=== PATIENT | female | born 1975 | race Caucasian/White ===

== ENCOUNTER 2016-09-28 08:29 | Emergency (ER) | payer OTHER ==
[2016-09-28 08:56] VITALS: BP 135/97; PULSE 83; RESP 18; TEMP 98.4; O2SAT 98; BMI 30.8
--- NOTE | 2016-09-28 09:24 | ED PDOC ---
Arrival/HPI - General Historian: Patient - General Chief Complaint: Eye Problem Time Seen by Provider: 09/28/16 09:13 - History of Present Illness Narrative History of Present Illness (Text): 09/28/16 09:20 Patient reports 2 day history of redness, irritation and thick yellow crusty discharge to both eyes since yesterday. Otherwise: (-) visual changes, (-) other injury, (-) contact lens. Patient also denies fever, chills, headache, URI symptoms, eye pain, FB sensation and has no other complaints at this time. PMD none (Tony REEVES,Stephania Chaves) Past Medical History - Provider Review Nursing Documentation Reviewed: Yes - Reproductive Menopause: No - Psychiatric Hx Substance Use: No Family/Social History - Physician Review Nursing Documentation Reviewed: Yes Family/Social History: No Known Family HX Smoking Status: Never Smoked Hx Alcohol Use: No Hx Substance Use: No Allergies/Home Meds Allergies/Adverse Reactions: Allergies No Known Allergies Allergy (Verified 09/28/16 08:56) Review of Systems - Review of Systems Constitutional: Normal. absent: Fatigue, Weight Change, Fevers Eyes: Normal, Other (b/l eye redness with d/c). absent: Vision Changes, Photophobia, Eye Pain ENT: Normal. absent: Hearing Changes, Tinnitus, Sore Throat, Epistaxis Skin: Normal. absent: Rash, Pruritis, Skin Lesions Physical Exam Vital Signs Reviewed: Yes Temperature: Afebrile Blood Pressure: Normal Pulse: Regular Respiratory Rate: Normal Appearance: Positive for: Well-Appearing, Non-Toxic, Comfortable Pain Distress: None Mental Status: Positive for: Alert and Oriented X 3 - Systems Exam Head: Present: Atraumatic, Normocephalic Pupils: Present: PERRL Extroacular Muscles: Present: EOMI, Other (Visual acuity : L 20/25 R 20/13) Conjunctiva: Present: Injected, Other (+crusty d/c to b/l eyelids) Ears: Present: Normal Mouth: Present: Moist Mucous Membranes Pharnyx: Present: Normal. No: ERYTHEMA, EXUDATE Nose (External): Present: Atraumatic Nose (Internal): Present: Normal Inspection Neck: Present: Normal Range of Motion. No: Meningeal Signs, MIDLINE TENDERNESS Neurological: Present: GCS=15, CN II-XII Intact Skin: Present: Warm, Dry, Normal Color. No: Rashes Vital Signs Temp Pulse Resp BP Pulse Ox 09/28/16 08:53 98.4 F 83 18 135/97 H 98 Medical Decision Making ED Course and Treatment: I was available for consultation during PA evaluation. The chart was reviewed by me, and I agree with disposition. The documented history was done by the physician ship pilot. The documented physical exam was done by the physician ship pilot. The documented procedures were done by the physician ship pilot. (Frederick Rios) 09/28/16 09:25 Patient reports 2 day history of redness, irritation and thick yellow crusty discharge to both eyes since yesterday. Based on history and exam likely viral versus bacterial conjunctivitis to consider corneal abrasion. Patient instructed to constantly wash her hands, avoid touching her eyes and face, informed that conjunctivitis is highly contagious and to be aware that she can spread the infection to others. Patient advised to follow up with ophthalmology referral provided in 1-2 days without fail. Advised to take medication as prescribed. Return to the emergency room at any time for any new or worsening symptoms. Patient states she fully agrees with and understands discharge instructions. States that she agrees with the plan and disposition. Verbalized and repeated discharge instructions and plan. I have given the patient opportunity to ask any additional questions. (Tony REEVES,Stephania Chaves) - PA / HVAC MECHANICAL ENGINEER / Resident Statement MD/DO has reviewed & agrees with the documentation as recorded. Disposition/Present on Arrival - Present on Arrival Any Indicators Present on Arrival: No History of DVT/PE: No History of Uncontrolled Diabetes: No Urinary Catheter: No History of Decub. Ulcer: No History Surgical Site Infection Following: None - Disposition Have Diagnosis and Disposition been Completed?: Yes Disposition Time: 09:27 Patient Plan: Discharge - Disposition Diagnosis: Conjunctivitis Disposition: HOME/ ROUTINE Condition: STABLE Discharge Instructions (ExitCare): Conjunctivitis (ED) Print Language: [place] Additional Instructions: Thank you for letting us take care of you today. You were treated for conjunctivitis. The emergency medical care you received today was directed at your acute symptoms. If you were prescribed any medication, please fill it and take as directed. It may take several days for your symptoms to resolve. Return to the Emergency Department if your symptoms worsen, do not improve, or if you have any other problems. Please contact an eye doctor in 2 days for re-evaluation and follow up. Bring any paperwork you were given at discharge with you along with any medications you are taking to your follow up visit. Our treatment cannot replace ongoing medical care by a primary care provider (PCP) outside of the emergency department. Thank you for allowing the [facility] team to be part of your care today. Prescriptions: Tobramycin 0.3% [Tobrex 0.3% Ophth Soln] 2 drop OU QID #1 bottle Referrals: Campbell Delgado MD [Staff Provider] - Follow up with primary Forms: WORK NOTE
== END 2016-09-28 09:50 | disposition home or self-care (01) ==
LOC: ED 08:29
DX: H10.9 Unspecified conjunctivitis (principal)